=== PATIENT | male | born 1935 | race Hispanic/Latino ===

== ENCOUNTER 2022-04-16 10:35 | Day surgery (SDC) | payer MEDICARE ==
[~2022-04-16] VITALS: Ht 170.2 cm; Wt 97.5 kg
[~2022-04-16 10:35] MED LIST: ALLO100T PO; ATOR40TA69 PO; GABA-529 PO; HYDR-4154 PO; LEVO137C4 PO; NEBI5TAB11 PO; OMEP40CA21 PO; TAMS-1 PO; TOLT2TAB20 PO; WARF-57 PO
[2022-04-16] MEDS ORDERED: 0.9%NACL 1000ML 1,000 ML IV ONE (10:38)
[2022-04-16 11:19] VITALS: BP 175/71
[2022-04-16 11:44] LABS: HEMATOCRIT 34.9 % (42-54); MEAN CORPUSCULAR HEMOGLOBIN 30.3 pg (27.0-33.0); MEAN CORPUSCULAR VOLUME 91.8 fL (79-99); RED BLOOD CELL COUNT(AUTO) 3.8 MIL/uL (4.50-6.20); RED CELL DISTRIBUTION WIDTH 15.6 % (11.0-15.5); WHITE BLOOD COUNT (AUTO) 4.6 K/uL (4.8-10.8)
[2022-04-16] MEDS ORDERED: PROPOFOL 10 MG/ML 20ML VIAL IV ONE ×2 (11:50→11:51)
[2022-04-16 11:51] LABS: CREATININE 1.6 mg/dL (0.5-1.5)
[2022-04-16 12:02] LABS: INR 1.19 (0.85-1.15); PROTHROMBIN TIME 12.8 SEC (9.6-11.6)
[2022-04-16 13:05] VITALS: BP 118/65
[2022-04-16 13:10] VITALS: BP 148/67
[2022-04-16 13:15] VITALS: BP 170/66
[2022-04-16 13:30] VITALS: BP 146/42
[2022-04-16 13:45] VITALS: BP 144/82
== END 2022-04-16 14:00 | disposition home or self-care (01) ==
LOC: ENDO 10:35 → DAH 10:35 → ENDO 14:00
PROVIDERS: ATTEND Internal Medicine Gastroenterology
DX: R19.7 Diarrhea, unspecified (principal); Z20.822 Contact with and (suspected) exposure to COVID-19; K92.1 Melena; R63.4 Abnormal weight loss; D12.2 Benign neoplasm of ascending colon; K64.8 Other hemorrhoids; K57.30 Diverticulosis of large intestine without perforation or abscess without bleeding; K62.1 Rectal polyp; K31.89 Other diseases of stomach and duodenum; K29.50 Unspecified chronic gastritis without bleeding; I10 Essential (primary) hypertension; I51.0 Cardiac septal defect, acquired; I25.10 Atherosclerotic heart disease of native coronary artery without angina pectoris; K21.9 Gastro-esophageal reflux disease without esophagitis; E03.9 Hypothyroidism, unspecified; M19.90 Unspecified osteoarthritis, unspecified site; E78.5 Hyperlipidemia, unspecified; Z79.899 Other long term (current) drug therapy; Z98.890 Other specified postprocedural states; Z90.49 Acquired absence of other specified parts of digestive tract; Z95.1 Presence of aortocoronary bypass graft; Z95.5 Presence of coronary angioplasty implant and graft; Z87.891 Personal history of nicotine dependence; Z72.89 Other problems related to lifestyle; Z68.31 Body mass index [BMI] 31.0-31.9, adult
CPT/HCPCS: 87426; 45385; 45380; 43239; 80048; 85027; 85610; 36415; 88305; 88342; J7030 ×2; J2704 ×2; A4620; A4215 ×2; A4223; A4222; A4221; A4663; A4216; A4606; 43235; 93005